=== PATIENT | female | born 1960 | race Caucasian/White ===

== ENCOUNTER → 2018-06-24 | Outpatient (CLI) | payer BC ==
--- NOTE | 2018-06-25 08:06 | MM ---
Reason for exam: clinical finding. Last mammogram was performed 1 year and 2 months ago. History: Patient is postmenopausal. Family history of breast cancer in mother at age 50 and breast cancer in sister at age 40. Benign excisional biopsy of the right breast, 2005. Indicated problem(s): lump or thickening in the right breast. Physical Findings: Nurse Summary: 1cm nodule in the left breast at 9 o'clock (nurse mj). MG Diagnostic Mammo w CAD RIGO Bilateral CC and MLO view(s) were taken. ML view(s) were taken of the left breast. Prior study comparison: April 10, 2017, bilateral MG diagnostic mammo w CAD RIGO. September 22, 2015, bilateral MG diagnostic mammo w CAD RIGO. The breast tissue is heterogeneously dense. This may lower the sensitivity of mammography. There is no discrete abnormality including area of concern marked by BB. No significant new findings when compared with previous films. These results were verbally communicated with the patient and result sheet given to the patient on 06/24/18. ASSESSMENT: Benign, BI-RAD 2 RECOMMENDATION: Routine screening mammogram of both breasts in 1 year.
--- NOTE | 2018-06-25 08:08 | USB ---
Reason for exam: clinical finding. History: Patient is postmenopausal. Family history of breast cancer in mother at age 50 and breast cancer in sister at age 40. Benign excisional biopsy of the right breast, 2005. US Breast LT Left complete breast ultrasound includes all four quadrants, the retroareolar region and axilla. Finding demonstrates no cystic or solid lesion seen at BB at 9:30. A 1.3 x 1.5 x 0.8cm oval node at the axilla. Normal lymph nodes at axilla, stable. These results were verbally communicated with the patient and result sheet given to the patient on 06/24/18. ASSESSMENT: Benign, BI-RAD 2 RECOMMENDATION: Routine screening mammogram of both breasts in 1 year. Manage patient on a clinical basis.
== END ==
LOC: RADMAMWWP 13:48
PROVIDERS: ATTEND Family Medicine
DX: N63.20 Unspecified lump in the left breast, unspecified quadrant (principal); Z85.3 Personal history of malignant neoplasm of breast
CPT/HCPCS: 77066

== ENCOUNTER → 2019-09-10 | Outpatient (CLI) | payer MEDICARE ==
--- NOTE | 2019-09-10 10:44 | MR ---
EXAMINATION TYPE: MR shoulder LT wo con DATE OF EXAM: 09/10/2019 10:26 AM COMPARISON: NONE HISTORY: Fall on Left Shoulder. Pain in Joint, Clicking and Loss of Range of Motion. TECHNIQUE: Multiplanar multispin echo imaging of the left shoulder was performed. FINDINGS: Rotator cuff : Partial complete tear supraspinatus tendon just distal to the critical zone with fluid filled gap of 9 mm. Additional heterogeneity and thickening of the supraspinatus tendon compatible c hronic tendinopathy. The remaining constituents of the rotator cuff are intact. Bursa: No bursal effusion or thickening is seen. Musculature: There is no muscular tear, contusion, or atrophy. Acromioclavicular joint : Moderate AC joint arthropathy. Subacromial spurring resulting in impingemen t. Osseous structures : There are no fractures or regions of abnormal bone marrow signal intensity. Long biceps tendon : The biceps tendon is normally situated within the bicipital groove. No complete or partial biceps tendon tear is present. Glenohumeral Joint fluid : Mild joint effusion noted. Cartilage and Bone : No focal hyaline cartilage defects are noted. No Hill-Sachs, reverse Hill-Sachs, or bony Bankart lesions are seen. Labrum : There are no SLAP or soft tissue Bankart lesions. No paralabral cysts are seen. OTHER FINDINGS : none IMPRESSION: 1. Partial complete tear supraspinatus tendon just distal to the critical zone with fluid filled gap of 9 mm. Additional heterogeneity and thickening of the supraspinatus tendon compatible chronic tendi nopathy.
== END | disposition home or self-care (01) ==
LOC: RADMRIMAIN 09:39
PROVIDERS: ATTEND Orthopaedic Surgery
DX: M75.122 Complete rotator cuff tear or rupture of left shoulder, not specified as traumatic (principal); M67.814 Other specified disorders of tendon, left shoulder

== ENCOUNTER → 2019-09-15 | Outpatient (CLI) | payer MEDICARE ==
[2019-09-15 11:21] LABS: Basophils % (A) 1 %; Eosinophils # (A) 0.1 k/uL (0-0.7); Eosinophils % (A) 1 %; HCT 42.3 % (34.0-46.0); HGB 13.6 gm/dL (11.4-16.0); Lymphocytes # (A) 1.8 k/uL (1.0-4.8); Lymphocytes % (A) 34 %; MCH 29.4 pg (25.0-35.0); MCHC 32.2 g/dL (31.0-37.0); MCV 91.4 fL (80.0-100.0); Monocytes # (A) 0.3 k/uL (0-1.0); Monocytes % (A) 6 %; Neutrophils # (A) 2.9 k/uL (1.3-7.7); Neutrophils % (A) 55 %; Platelet Count 285 k/uL (150-450); RBC 4.63 m/uL (3.80-5.40); WBC 5.2 k/uL (3.8-10.6)
[2019-09-15 16:19] LABS: Anion Gap 11.7 mmol/L (4.00-12.00); Carbon Dioxide 26.3 mmol/L (21.6-31.8); Potassium 4.4 mmol/L (3.5-5.5)
== END | disposition home or self-care (01) ==
LOC: LABWHC1 10:01
PROVIDERS: ATTEND Orthopaedic Surgery
DX: Z01.818 Encounter for other preprocedural examination (principal); M75.42 Impingement syndrome of left shoulder
CPT/HCPCS: 36415; 80051; 85025

== ENCOUNTER → 2019-10-03 | Outpatient (CLI) | payer MEDICARE | END | disposition home or self-care (01) | LOC: LABWHC1 14:19 | PROVIDERS: ATTEND Orthopaedic Surgery | DX: Z11.59 Encounter for screening for other viral diseases (principal) ==

== ENCOUNTER 2019-10-07 08:36 | Day surgery (SDC) | payer MEDICARE ==
[2019-10-06 09:28] VITALS: BMI 34.5
--- NOTE | 2019-10-06 10:40 | HP ---
HISTORY AND PHYSICAL CHIEF COMPLAINT: Left shoulder pain. HISTORY OF PRESENT ILLNESS: The patient is a 59-year-old, right-hand dominant, retired female who presents with left shoulder pain after an injury on 07/04/2019. She fell while holding a dog on a leash. She has had pain with overhead use and at night ever since. She has tried anti- inflammatories and rest without much relief. She denies previous problems. PAST MEDICAL HISTORY: Negative. PAST SURGICAL HISTORY: Negative. CURRENT MEDICATIONS: Ibuprofen and baby aspirin. She denies drug allergies. FAMILY HISTORY: Significant for cancer. SOCIAL HISTORY: Significant for previous tobacco use; however, she quit in 1980. 16 POINT REVIEW OF SYSTEMS: Otherwise reviewed and is noncontributory. PHYSICAL EXAMINATION: On examination, the patient is approximately 5 foot 3, 195 pounds of endomorphic habitus. HEENT: Exam is nonfocal. NECK: Supple. On examination of her left shoulder, she is tender about the anterior subacromial space and the bicipital groove. She has mild subacromial crepitus. Active range of motion, forward elevation 150 degrees, external rotation with arm at side 65 degrees, internal rotation to T12. Motor strength is 5-/5 for abduction and external rotation. Impingement test, Neer test is positive. Cross-body adduction is positive. Her distal neurovascular appears intact in the left upper extremity. MRI report left shoulder shows evidence of a full-thickness tear of the supraspinatus and acromioclavicular joint synovitis. IMPRESSION: 1. Acute left rotator cuff tear. 2. Left acromioclavicular joint synovitis. RECOMMENDATIONS: I talked to the patient at length regarding her condition and treatment options. At this point, she is quite symptomatic after this acute injury. After thorough discussion, she opts to proceed with surgery. We will plan to proceed with arthroscopic evaluation of the left shoulder with probable subacromial decompression, rotator cuff repair, and distal clavicular resection. We will likely perform that as an outpatient procedure. MMODL / IJN: [id number] /
[~2019-10-07 08:36] MED LIST: DEXAMETHASONE SOD PHOSPHATE 10 MG/ML 1 ML VIAL IV ONE; HYDROmorphone 0.5 MG/0.5 ML SYRINGE IVP PRN; LACTATED RINGERS 1,000 ML IV SCH; LIDOCAINE 1% (10MG/ML) FOR IV START INTRADERMA PRN; MIDAZOLAM 2 MG/2 ML VIAL IV PRN; ONDANSETRON 4 MG/2 ML VIAL IVP ONE
[2019-10-07] MEDS ORDERED: fentaNYL (PF) 50 MCG/ML 2 ML AMP IV ONE (09:15)
[2019-10-07] MEDS ORDERED: PHENYLEPHRINE-0.9% NACL SYG 1 MG/10 ML SYRINGE ONE (09:32)
[2019-10-07] MEDS ORDERED: fentaNYL (PF) 50 MCG/ML 2 ML AMP ONE (09:32)
[2019-10-07] MEDS ORDERED: DEXAMETHASONE SOD PHOSPHATE 4 MG/ML 1 ML VIAL ONE (09:32)
[2019-10-07] MEDS ORDERED: PROPOFOL 10 MG/ML 20 ML VIAL IV ONE (09:32)
[2019-10-07] MEDS ORDERED: LIDOCAINE 1% INJ 10MG/ML (20 ML MDV) ONE (09:32)
[2019-10-07] MEDS ORDERED: GLYCOPYRROLATE 0.2 MG/ML 2 ML VIAL ONE (09:32)
[2019-10-07] MEDS ORDERED: ROPIVACAINE 5 MG/ML 30 ML VIAL ONE (09:32)
[2019-10-07] MEDS ORDERED: SUCCINYLCHOLINE CHLORIDE 100 MG/5 ML SYR IV ONE (09:32)
--- NOTE | 2019-10-07 09:35 | P.ANPRN ---
Procedure Note - Anesthesia - Nerve Block Performed Left Interscalene Single Time Out Performed: Yes Date of Procedure: 10/07/19 Procedure Start Time: :15 Procedure Stop Time: :25 Location of Patient: PreOp Indication: Acute Post-Operative Pain, Dx/Pain Location (Left shoulder) Specifically requested for management of pain by DrIlene: Yo Montenegro Sedation Type: Sedate with meaningful contact maintained Preparation: Sterile Prep Position: Supine Catheter: None Needle Types: Facet Needle Gauge: 20 Ultrasound used to visualize needle placement: Yes Ultrasound used to observe medication spread: Yes Injectate: 0.5% Ropivacaine (see comment for volume) (20 mls) Blood Aspirated: No Pain Paresthesia on Injection Noted: No Resistance on Injection: Normal Image Stored and Saved: Yes Events: Uneventful and Well Tolerated
[2019-10-07] MEDS ORDERED: EPINEPHrine (PF) 1 ML in SODIUM CHLORIDE 0.9% IRRIGATIO 3,000 ML IRRIGATION ONE ×8 (10:00)
[2019-10-07] MEDS ORDERED: LACTATED RINGERS 1,000 ML IV ONE (10:56)
--- NOTE | 2019-10-07 11:10 | P.OP ---
Date of Procedure: 10/07/19 Preoperative Diagnosis: Left shoulder impingement/rotator cuff tear Postoperative Diagnosis: Left shoulder 4 cm rotator cuff tear/high-grade partial-thickness tear long head of the bicepsintra-articular portion/acromioclavicular joint arthritis Procedure(s) Performed: Left shoulder arthroscopic subacromial decompression/distal clavicular resection/biceps tenotomy/rotator cuff repair Implants: Arthrex 4.75 mm swivel lock anchor 3, 5.5 mm swivel lock anchor 1 Anesthesia: VIANEY, regional Surgeon: Yo Montenegro Kennel Worker #1: Mumtaz Cannon Estimated Blood Loss (ml): 10 Pathology: none sent Condition: stable Disposition: PACU Indications for Procedure: The patient is a 59-year-old female who presents with progressive left shoulder pain despite conservative measures. A discussion of the risks and benefits of operative intervention versus continued conservative measures was made with patient. She opted to proceed with surgery. Operative risks to include infection, neurovascular injury, development of blood clots, possible tendon rerupture, possible postoperative stiffness and need for subsequent procedures was discussed. Informed consent was obtained. Operative Findings: As below Description of Procedure: The patient was brought to the operating room, and after induction of general anesthesia was placed in a beachchair position. A preoperative interscalene block was placed for postoperative analgesia. I examined the left shoulder. There was no gross block to passive motion or gross glenohumeral instability. The left upper extremity was prepped and draped in normal fashion. The bony outlines the acromion, distal clavicle, and coracoid process were outlined with a skin marker. The glenohumeral joint was inflated with 50 mL of saline utilizing a spinal needle from posterior approach. A posterior portal was made through a 5 mm skin incision 1 cm medial and inferior to the posterior lateral border time. A blunt trocar was used to easily into the joint. Diagnostic arthroscopy was performed. An anterior portal was made just lateral to the coracoid process entering the joint above the subscapularis tendon. The subscapularis tendon appeared to be intact. Anterior labrum was intact. The inferior recess was inspected. The posterior labrum was intact. There was a high-grade partial-thickness tear of the long head of the biceps involving interarticular portion. It was elected to proceed with release at this point. This was released from the superior labrum with electrocautery and was allowed to retract to the bicipital groove. On inspection the rotator cuff, a large 4 cm tear was noted minimal retraction. The arthroscope was placed into the subacromial space. A lateral portal was made 2 centimeters inferior to the an terior lateral border of the acromion. The rotator cuff was easily brought back to the greater tuberosity. The soft tissue on the undersurface of the acromion was debrided with a motorized shaver and electrocautery clearly defining the anterior medial and lateral borders as well as the distal clavicle. An anterior inferior acromioplasty was performed with a motorized nanci starting anterolateral, then extending this posteriorly, then extending this medially. I converted to a flat acromion and this was verified in the posterior and lateral viewing portals. The distal 4 mm of the clavicle was resected with a motorized bur. The greater tuberosity was lightly decorticating with a shaver down to a bleeding bony surface. An accessory superior lateral portals made just off the lateral edge of the acromion for anchor placement. 2 anchors were then placed just off the articular surface with the appropriate starting awl. 4.75 mm anchors preloaded with #2 fiber tape were placed. Good purchase was obtained. These fiber tapes were then passed the rotator cuff with a scorpion suture passer. A lateral row was created crisscrossing these tapes. One 4.75 mm swivel lock anchor and one 5.5 mm swivel lock anchor was placed laterally. Good purchase was obtained. Final arthroscopic view showed adequate compression at the footprint. The arthroscope was then removed. The portals were closed with simple 3-0 nylon sutures. A sterile dressing was applied in addition to a sling. The patient was then awoken from general anesthesia and transferred to recovery room in good condition. Blood loss was estimated at 10 mL. No complications were incurred. Sponge and needle counts were correct in the case. Naif SABA assisted and the major components of the case to include arm positioning, anchor placement, and rotator cuff repair.
[2019-10-07 11:14] VITALS: TEMP 96.8
[2019-10-07 11:17] VITALS: RESP 16
[2019-10-07 14:46] VITALS: BP 115/74; PULSE 75
== END 2019-10-07 15:22 | disposition home or self-care (01) ==
LOC: OR 08:36
PROVIDERS: ATTEND Orthopaedic Surgery
DX: M75.102 Unspecified rotator cuff tear or rupture of left shoulder, not specified as traumatic (principal); M19.012 Primary osteoarthritis, left shoulder; Z79.1 Long term (current) use of non-steroidal anti-inflammatories (NSAID); Z79.82 Long term (current) use of aspirin; Z87.891 Personal history of nicotine dependence; Z80.9 Family history of malignant neoplasm, unspecified
CPT/HCPCS: 64415; 76942; 29826; 29827; 29824; C1713 ×2; C1894; J2250; J1100 ×2; J0690; J2405; J0171; J2001; J3010; J2795; J2370; J0330; J2704

== ENCOUNTER → 2020-01-23 | Outpatient (CLI) | payer MEDICARE ==
--- NOTE | 2020-01-26 10:32 | MM ---
Reason for exam: screening (asymptomatic). Last mammogram was performed 1 year and 7 months ago. History: Patient is postmenopausal. Family history of breast cancer in mother at age 50 and breast cancer in sister at age 40. Benign excisional biopsy of the right breast, 2005. Physical Findings: A clinical breast exam by your physician is recommended on an annual basis and results should be correlated with mammographic findings. MG 3D Screening Mammo W/Cad Bilateral CC and MLO view(s) were taken. Prior study comparison: June 24, 2018, bilateral MG diagnostic mammo w CAD RIGO. April 10, 2017, bilateral MG diagnostic mammo w CAD RIGO. The breast tissue is heterogeneously dense. This may lower the sensitivity of mammography. There is no discrete abnormality. ASSESSMENT: Negative, BI-RAD 1 RECOMMENDATION: Routine screening mammogram of both breasts in 1 year.
--- NOTE | 2020-01-26 14:19 | BD ---
EXAMINATION TYPE: Axial Bone Density DATE OF EXAM: 01/23/2020 COMPARISON: 04.10.2017 CLINICAL HISTORY: 59 YR OLD FEMALE....ICD-10 CODE: M89.9 DISORDER OF BONE Height: 61 Weight: 202 FRAX RISK QUESTIONS: Family History (Parent hip fracture): YES RISK FACTORS HISTORY OF: FX FINGER CHILD ONLY Family History of Osteoporosis: YES, MOTHER WITH HIP FX Postmenopausal woman: YES, AT AGE 48 YRS OLD Hyperparathyroidism: NO Adrenal Insufficiency: NO MEDICATIONS: Additional Medications: VIT D, Additional History: NOTHING TO NOTE HERE EXAM MEASUREMENTS: Bone mineral densitometry was performed using the Image Socket System. Bone mineral density as measured about the Lumbar spine is: ----- L1-L4(G/cm2): 1.174 T Score Values are as follows: ----- L1: -1.2 ----- L2: -0.9 ----- L3: 0.8 ----- L4: 0.5 ----- L1-L4: 0.0 Bone mineral density has: Increased 6.3% since study of: 04.10.2017 Bone mineral density about the R hip (g/cm2): 0.960 Bone mineral density about the L hip (g/cm2): 0.963 T Score values are as follows: -----R Neck: -1.6 -----L Neck: -1.1 -----R Total: -0.4 -----L Total: -0.1 Bone mineral density has: Decreased -2.4% since study of: 04.10.2017 FRAX%s: THERE IS 15.0% CHANCE FOR A MAJOR OSTEOPOROTIC FX AND A 0.7% FOR HIP.....PROBABILITY FOR FX IN 10 YRS TIME IMPRESSION: Osteopenia (T Score between -2.5 and -1). There is slightly increased risk of fracture and the patient may be considered for treatment. Re-Screen 2-5 years. NOTE: T-SCORE=SD OF THE YOUNG ADULT MEAN.
== END | disposition home or self-care (01) ==
LOC: RADMAMWWP 08:43
PROVIDERS: ATTEND Family Medicine
DX: Z12.31 Encounter for screening mammogram for malignant neoplasm of breast (principal); M85.80 Other specified disorders of bone density and structure, unspecified site; Z80.3 Family history of malignant neoplasm of breast
CPT/HCPCS: 77063; 77067; 77080

== ENCOUNTER → 2020-03-19 | Outpatient (CLI) | payer MEDICARE ==
--- NOTE | 2020-03-19 18:26 | MR ---
EXAMINATION TYPE: MR shoulder RT wo con DATE OF EXAM: 03/19/2020 COMPARISON: None HISTORY: pain in right shoulder goes down arm since October Technique: Multiplanar, multiecho imaging on a 3.0 Jen magnet is performed through the shoulder. Findings: Long head of the biceps tendon is within the bicipital groove. No significant joint effusion is evident. There is fluid surrounding the long head of the biceps ten don compatible with moderate tendinosis. Fluid also appears to surround the subscapularis tendon sugg estive for moderate tendinosis. Glenoid labrum as visualized on this noncontrast study appears to have increased signal within its meyer bstance. A SLAP lesion at the superior glenoid could be considered. Rotator cuff tendons are evaluated. There is fluid surrounding the supraspinatus tendon. No muscle o r tendon retraction is evident. There is a complete tear of the supraspinatus tendon distally with a few posterior fibers remaining. The acromioclavicular junction is mildly hypertrophied without significant downward spurring. IMPRESSIONS: 1. Nearly complete tear of the supraspinatus tendon with a transverse dimension of 2.8 cm. Muscle atr ophy or tendon retraction however is not identified. A few intact fibers may be at the supraspinatus subscapularis junction. 2. Moderate tendinosis supraspinatus tendon. 3. Moderate tendinosis long head biceps tendon.
== END | disposition home or self-care (01) ==
LOC: RADMRIMAIN 11:16
PROVIDERS: ATTEND Orthopaedic Surgery
DX: M75.121 Complete rotator cuff tear or rupture of right shoulder, not specified as traumatic (principal); M62.50 Muscle wasting and atrophy, not elsewhere classified, unspecified site

== ENCOUNTER → 2020-04-01 | Outpatient (CLI) | payer MEDICARE ==
--- NOTE | 2020-04-01 10:36 | CT ---
EXAMINATION TYPE: CT soft tissue neck w con DATE OF EXAM: 04/01/2020 HISTORY: Acute lymphadenitis of head and neck per order. COMPARISON: NONE CT DLP: 375.40 mGycm. Automated Exposure Control for Dose Reduction was Utilized. TECHNIQUE: CT scan of the neck is performed with IV Contrast, patient injected with 100 ml mL of Iso za 300, axial images are obtained, coronal and sagittal reformatted images are reviewed. FINDINGS: Airway: No gross abnormality seen. Parotid/submandibular glands: No gross abnormality seen. Carotid/Vascular Structures: No suspicious abnormality. Osseous Structures: Slight grade 1 anterolisthesis C3 on C4 and grade 1 retrolisthesis C5 on C6 and C 6 on C7 . Mild to moderate spurring and disc space narrowing C4-C5 through C6-C7 levels noted. Other: A few scattered subcentimeter lymph nodes throughout the neck bilaterally. No suspicious great er than 1 cm neck adenopathy. IMPRESSION: No suspicious mass or adenopathy.
== END | disposition home or self-care (01) ==
LOC: RADCTMAIN 09:24
PROVIDERS: ATTEND Family Medicine
DX: L04.0 Acute lymphadenitis of face, head and neck (principal)
CPT/HCPCS: 70491; Q9967

== ENCOUNTER → 2020-04-06 | Outpatient (CLI) | payer MEDICARE ==
[2020-04-06 10:43] LABS: Basophils % (A) 1 %; Eosinophils # (A) 0.1 k/uL (0-0.7); Eosinophils % (A) 1 %; HCT 43.5 % (34.0-46.0); HGB 13.8 gm/dL (11.4-16.0); Lymphocytes # (A) 2.2 k/uL (1.0-4.8); Lymphocytes % (A) 36 %; MCH 28.7 pg (25.0-35.0); MCHC 31.7 g/dL (31.0-37.0); MCV 90.4 fL (80.0-100.0); Mean Platelet Volume 6.7; Monocytes # (A) 0.4 k/uL (0-1.0); Monocytes % (A) 7 %; Neutrophils # (A) 3.4 k/uL (1.3-7.7); Neutrophils % (A) 53 %; Platelet Count 308 k/uL (150-450); RBC 4.81 m/uL (3.80-5.40); WBC 6.3 k/uL (3.8-10.6)
== END | disposition home or self-care (01) ==
LOC: LABPAT 10:12
PROVIDERS: ATTEND Orthopaedic Surgery
DX: Z01.818 Encounter for other preprocedural examination (principal); M75.41 Impingement syndrome of right shoulder
CPT/HCPCS: 36415; 85025

== ENCOUNTER 2020-04-13 11:53 | Day surgery (SDC) | payer MEDICARE ==
[2020-04-09 11:20] VITALS: BMI 35.4
--- NOTE | 2020-04-12 11:17 | HP ---
HISTORY AND PHYSICAL CHIEF COMPLAINT: Right shoulder pain. HISTORY OF PRESENT ILLNESS: Patient is a 60-year-old, right-hand dominant, retired female who presents with progressive right shoulder pain for the past several months. She had a previous fall. She is having pain with overhead use and at night. She has tried therapy in addition to Motrin, anti-inflammatories without much relief. She notes the pain bothers her daily and is quite severe. PAST MEDICAL HISTORY: Negative. PAST SURGICAL HISTORY: Significant for left shoulder arthroscopic rotator cuff repair. CURRENT MEDICATIONS: Aspirin and ibuprofen. She denies drug allergies. FAMILY HISTORY: Significant for cancer. SOCIAL HISTORY: Significant for previous tobacco use; however, she quit in 1980. She admits to social alcohol use. 16 POINT REVIEW OF SYSTEMS: Otherwise reviewed and is noncontributory. PHYSICAL EXAMINATION: On examination, the patient is approximately 5 foot 3, 200 pounds of endomorphic habitus. HEENT: Exam is nonfocal. NECK: Supple. On examination of the right shoulder, she is tender about the anterior subacromial space. She has moderate acromial crepitus. Active range of motion, forward elevation 150 degrees, external rotation with arm at side 65 degrees, internal rotation to T12. Motor strength is 5-/5 for abduction and external rotation. Impingement test is positive. NEER test is positive. Her distal neurovascular appears intact in the right upper extremity. MRI report right shoulder shows evidence of a supraspinatus tear with mild retraction along with significant bicipital tendinosis and AC joint arthritis/synovitis. IMPRESSION: 1. Acute right rotator cuff tear-symptomatic. 2. Right acromioclavicular joint are arthritis. 3. Proximal biceps tendinosis. RECOMMENDATION: I talked to the patient at length regarding her condition and treatment options. At this point, she is quite symptomatic after this acute injury despite attempted conservative measures. After thorough discussion, she opts to proceed with surgery. We will plan to proceed with arthroscopic evaluation with probable subacromial decompression, rotator cuff repair, possible biceps tenotomy, possible distal clavicular resection. We will likely perform that as an outpatient procedure. Risks and benefits were discussed at length in layman's terms. MMODL / IJN: [id number] /
[~2020-04-13 11:53] MED LIST changes: -DEXAMETHASONE SOD PHOSPHATE 10 MG/ML 1 ML VIAL IV ONE; +DEXAMETHASONE SOD PHOSPHATE 4 MG/ML 1 ML VIAL IV ONE; -HYDROmorphone 0.5 MG/0.5 ML SYRINGE IVP PRN
[2020-04-13] MEDS ORDERED: MIDAZOLAM 2 MG/2 ML VIAL IVP ONE (13:10)
[2020-04-13] MEDS ORDERED: fentaNYL (PF) 50 MCG/ML 2 ML AMP IVP ONE (13:10)
--- NOTE | 2020-04-13 13:54 | P.ANPRN ---
Procedure Note - Anesthesia - Nerve Block Performed Right Interscalene Time Out Performed: Yes (:) Date of Procedure: 04/13/20 Procedure Start Time: Procedure Stop Time: Location of Patient: PreOp Indication: Acute Post-Operative Pain, Requested by Surgeon (Dr Wetzel) Sedation Type: Sedate with meaningful contact maintained Preparation: Sterile Prep Position: Supine Catheter: None Needle Types: Pajunk Needle Gauge: Other (see comment) (22g) Ultrasound used to visualize needle placement: Yes Ultrasound used to observe medication spread: Yes Injectate: 0.5% Ropivacaine (see comment for volume) (20cc + [id number]) Blood Aspirated: No Pain Paresthesia on Injection Noted: No Resistance on Injection: Normal Image Stored and Saved: Yes Events: Uneventful and Well Tolerated
[2020-04-13 14:06] VITALS: RESP 16
[2020-04-13] MEDS ORDERED: PROPOFOL 10 MG/ML 20 ML VIAL IV ONE (14:10)
[2020-04-13] MEDS ORDERED: LIDOCAINE 1% INJ 10MG/ML (20 ML MDV) ONE (14:10)
[2020-04-13] MEDS ORDERED: MIDAZOLAM 2 MG/2 ML VIAL ONE (14:10)
[2020-04-13] MEDS ORDERED: SUCCINYLCHOLINE CHLORIDE 100 MG/5 ML SYR IV ONE (14:10)
[2020-04-13] MEDS ORDERED: fentaNYL (PF) 50 MCG/ML 2 ML AMP ONE (14:10)
[2020-04-13] MEDS ORDERED: DEXAMETHASONE SOD PHOSPHATE 4 MG/ML 1 ML VIAL ONE (14:10)
[2020-04-13] MEDS ORDERED: ROPIVACAINE 5 MG/ML 30 ML VIAL ONE (14:10)
[2020-04-13] MEDS ORDERED: EPINEPHrine (PF) 1 ML in SODIUM CHLORIDE 0.9% IRRIGATIO 3,000 ML IRRIGATION ONE ×7 (15:42→15:43)
[2020-04-13] MEDS ORDERED: LACTATED RINGERS 1,000 ML IV ONE (15:43)
--- NOTE | 2020-04-13 15:46 | P.OP ---
Date of Procedure: 04/13/20 Preoperative Diagnosis: Right symptomatic rotator cuff tear Postoperative Diagnosis: 3 cm rotator cuff tear/acromioclavicular joint arthritis/high-grade partial- thickness tear proximal biceps Procedure(s) Performed: Right shoulder arthroscopic subacromial decompression/biceps tenotomy/distal clavicular resection/rotator cuff repair Implants: Arthrex 4.75 mm swivel lock anchor 4 [facility]: Yo Monten[place] [employer] Sergeant #1: Mumtaz Cannon Estimated Blood Loss (ml): 10 Pathology: none sent Condition: stable Disposition: PACU Indications for Procedure: The patient is a 60-year-old female who presents with progressive right shoulder pain despite conservative measures. A discussion of the risks and benefits of operative intervention versus continued conservative measures was made with patient. She opted proceed with surgery. Operative risks to include infection, neurovascular injury, development of blood clots, possible tendon rerupture, possible stiffness, possible need for subsequent procedures was discussed. Informed consent was obtained. Operative Findings: As below Description of Procedure: The patient was brought to the operating room, and after induction of general anesthesia was placed in a beachchair position. A preoperative interscalene block was placed for postoperative analgesia. I examined the right shoulder. There was no gross block to passive motion or gross glenohumeral instability. The right upper extremity was prepped and draped in normal fashion. The bony outlines the acromion, distal clavicle, and coracoid process were outlined with a skin marker. The glenohumeral joint was inflated with 50 mL of saline utilizing a spinal needle from posterior approach. A posterior portal was made through a 5 mm skin incision 1 cm medial and inferior to the posterior lateral border time. A blunt trocar was used to easily into the joint. Diagnostic arthroscopy was performed. An anterior portal was made just lateral to the coracoid process entering the joint above the subscapularis tendon. The subscapularis tendon appeared to be intact. Anterior labrum was intact. The inferior recess was inspected. The posterior labrum was intact. There was a high-grade partial-thickness tear of the long head of the biceps involving interarticular portion. It was elected to proceed with release at this point. This was released from the superior labrum with electrocautery and was allowed to retract to the bicipital groove. On inspection the rotator cuff, a full- thickness tear involving the supraspinatus and infraspinatus was noted measuring 3 cm with some retraction. A lateral portal was made 2 centimeters inferior to the anterior lateral border of the acromion. The rotator cuff was easily mobilized with a soft tissue grasper back to the greater tuberosity. The soft tissue on the undersurface of the acromion was debrided with a motorized shaver and electrocautery clearly defining the anterior medial and lateral borders as well as the distal clavicle. An anterior inferior acromioplasty was performed with a motorized nanci starting anterolateral, then extending this posteriorly, then extending this medially. I converted to a flat acromion and this was verified in the posterior and lateral viewing portals. The distal clavicle was impinging on the subacromial space in addition degenerative changes of the acromioclavicular joint were noted. The distal 4 mm of clavicle was resected with a motorized bur. The greater tuberosity was lightly decorticating with a shaver down to a bleeding bony surface. An accessory superior lateral portals made just off the lateral edge of the acromion for anchor placement. 2 anchors were then placed just off the articular surface with the appropriate starting awl. 4.75 mm anchors preloaded with #2 fiber tape were placed. Good purchase was obtained. These fiber tapes were then passed the rotator cuff with a scorpion suture passer. A lateral row was created crisscrossing these tapes. 4.75 mm swivel lock anchors x2 were placed laterally. Good purchase was obtained. Final arthroscopic view showed adequate compression at the footprint. The arthroscope was then removed. The portals were closed with simple 3-0 nylon sutures. A sterile dressing was applied in addition to an abductor brace. The patient was then awoken from general anesthesia and transferred to recovery room in good condition. Blood loss was estimated at 10 mL. No complications were incurred. Sponge and needle counts were correct in the case. Naif SABA assisted and the major components of the case to include arm positioning, anchor placement, and rotator cuff repair.
[2020-04-13 15:53] VITALS: TEMP 98.6
[2020-04-13] MEDS: HYDROmorphone 0.5 MG/0.5 ML SYRINGE IVP PRN ×2 (16:18→16:29)
[2020-04-13] MEDS ORDERED: KETOROLAC 15 MG/ML 1 ML VIAL IVP ONE (16:21)
[2020-04-13] MEDS ORDERED: traMADol 50 MG TAB ONE (17:15)
[2020-04-13] MEDS ORDERED: traMADol 50 MG TAB PO ONE (17:18)
[2020-04-13 17:36] VITALS: BP 121/77; PULSE 68
== END 2020-04-13 19:00 | disposition home or self-care (01) ==
LOC: OR 11:53
PROVIDERS: ATTEND Orthopaedic Surgery
DX: S46.011A Strain of muscle(s) and tendon(s) of the rotator cuff of right shoulder, initial encounter (principal); W19.XXXA Unspecified fall, initial encounter; M19.011 Primary osteoarthritis, right shoulder; S46.111A Strain of muscle, fascia and tendon of long head of biceps, right arm, initial encounter; Z87.891 Personal history of nicotine dependence; Z80.9 Family history of malignant neoplasm, unspecified; Z98.890 Other specified postprocedural states; Z79.1 Long term (current) use of non-steroidal anti-inflammatories (NSAID); Z79.82 Long term (current) use of aspirin
CPT/HCPCS: 64415; 76942; 29826; 29827; 29824; C1713; J2250; J1100; J0690; J2405; J0171; J2001; J3010; J2795; J1885; J0330; J2704; J1170

== ENCOUNTER → 2021-02-02 | Outpatient (CLI) | payer MEDICARE ==
--- NOTE | 2021-02-03 09:46 | MM ---
Reason for exam: screening (asymptomatic). Last mammogram was performed 1 year ago. History: Patient is postmenopausal. Family history of breast cancer in mother at age 50 and breast cancer in sister at age 40. Benign excisional biopsy of the right breast, 2005. Physical Findings: A clinical breast exam by your physician is recommended on an annual basis and results should be correlated with mammographic findings. MG 3D Screening Mammo W/Cad Bilateral CC and MLO view(s) were taken. Prior study comparison: January 23, 2020, bilateral MG 3d screening mammo w/cad. June 24, 2018, bilateral MG diagnostic mammo w CAD RIGO. The breast tissue is heterogeneously dense. This may lower the sensitivity of mammography. There are benign appearing round linear calcifications bilaterally. There is no discrete abnormality. ASSESSMENT: Benign, BI-RAD 2 RECOMMENDATION: Routine screening mammogram of both breasts in 1 year.
== END | disposition home or self-care (01) ==
LOC: RADMAMWWP 09:34
PROVIDERS: ATTEND Family Medicine
DX: Z12.31 Encounter for screening mammogram for malignant neoplasm of breast (principal)
CPT/HCPCS: 77063; 77067

== ENCOUNTER → 2022-03-01 | Outpatient (CLI) | payer MEDICARE ==
--- NOTE | 2022-03-02 16:44 | MM ---
Reason for Exam: Screening (asymptomatic). Last mammogram was performed 1 year(s) and 1 month(s) ago. Patient History: Menarche at age 10. First Full-Term at age 20. Postmenopausal. Patient has history of breast feeding. 2006, Benign Excisional Biopsy on the right side. Sister had breast cancer, age 40. Mother had breast cancer, age 50. Risk Values: Cherri 5 year model risk: 8.2%. NCI Lifetime model risk: 30.5%. Prior Study Comparison: 06/24/2018 Bilateral Diagnostic Mammogram, [facility]. 01/23/2020 Bilateral Screening Mammogram, [facility]. 02/02/2021 Bilateral Screening Mammogram, [facility]. Tissue Density: The breast tissue is heterogeneously dense. This may lower the sensitivity of mammography. Findings: Analyzed By CAD. Pattern appears symmetrical and stable. No significant interval change is evident. No suspicious groups of microcalcifications, spiculated or lobular masses, architectural distortion or other secondary signs of malignancy are mammographically apparent. Overall Assessment: Benign, BI-RAD 2 Management: Screening Mammogram of both breasts in 1 year. A negative mammogram report should not preclude additional follow up of suspicious palpable abnormalities. Patient should continue monthly self breast exam. A clinical breast exam by your physician is recommended on an annual basis and results should be correlated with mammographic findings. Electronically signed and approved by: Ángel Rodriguez D.O. Radiologis
--- NOTE | 2022-03-02 17:32 | BD ---
EXAMINATION TYPE: Axial Bone Density DATE OF EXAM: 03/01/2022 COMPARISON: 01/23/2020 CLINICAL HISTORY: 62 years year old Female. ICD-10 CODE: N95.1 Post menopausal symptoms; M89.9 disor gadiel of bone Height: 61 IN Weight: 203 LBS FRAX RISK QUESTIONS: Family History (Parent hip fracture): YES MOTHER RISK FACTORS HISTORY OF: Family History of Osteoporosis: YES MOTHER Active: YES Postmenopausal woman: AGE 48 MEDICATIONS: Additional Medications: VIT D, EXAM MEASUREMENTS: Bone mineral densitometry was performed using the [facility]. Bone mineral density as measured about the Lumbar spine is: ----- L1-L4(G/cm2): 1.146 T Score Values are as follows: ----- L1: -0.4 ----- L2: -1.4 ----- L3: 0.1 ----- L4: 0.2 ----- L1-L4: -0.3 Bone mineral density has: Decreased -4.7% since study of: 01/23/2020 Bone mineral density about the R hip (g/cm2): 0.793 Bone mineral density about the L hip (g/cm2): 0.853 T Score values are as follows: -----R Neck: -1.8 -----L Neck: -1.3 -----R Total: -0.6 -----L Total: -0.4 Bone mineral density has: Decreased -3.7% since study of: 01/23/2020 FRAX%s: The graph provided illustrates a 16.5 chance for a major osteoporotic fx and a 1.0 chance for the hips probability for fx in 10 years time. IMPRESSION: Osteopenia (T Score between -2.5 and -1). There is slightly increased risk of fracture and the patient may be considered for treatment. Re-Screen 2-5 years. NOTE: T-SCORE=SD OF THE YOUNG ADULT MEAN.
== END | disposition home or self-care (01) ==
LOC: RADBDWWP 16:14
PROVIDERS: ATTEND Family Medicine
DX: Z12.31 Encounter for screening mammogram for malignant neoplasm of breast (principal); M85.89 Other specified disorders of bone density and structure, multiple sites; Z80.3 Family history of malignant neoplasm of breast; Z78.0 Asymptomatic menopausal state
CPT/HCPCS: 77063; 77067; 77080

== ENCOUNTER → 2023-03-19 | Outpatient (CLI) | payer MEDICARE ==
--- NOTE | 2023-03-19 09:25 | MM ---
Reason for Exam: Screening (asymptomatic). Last screening mammogram was performed 12 month(s) ago. Patient History: Menarche at age 10. First Full-Term at age 20. Postmenopausal. Patient has history of breast feeding. 2005, Benign Excisional Biopsy on the right side. Sister had breast cancer, age 40. Mother had breast cancer, age 50. Risk Values: Cherri 5 year model risk: 8.4%. NCI Lifetime model risk: 29.7%. Prior Study Comparison: 01/23/2020 Bilateral Screening Mammogram, [facility]. 02/02/2021 Bilateral Screening Mammogram, [facility]. 03/01/2022 Bilateral MG 3D screening mammo w/cad, [facility]. Tissue Density: There are scattered fibroglandular densities. Findings: Analyzed By CAD. There is no suspicious group of microcalcifications or new suspicious mass. Overall Assessment: Negative, BI-RAD 1 Management: Screening Mammogram of both breasts in [address] [facility] will attempt to contact patient to return for supplemental views and ultrasound if indicated. Patient should continue monthly self-breast exams. A clinical breast exam by your physician is recommended on an annual basis. This exam should not preclude additional follow-up of suspicious palpable abnormalities. Note on Cherri scores and lifetime risk: 1. A Cherri score greater than 3% is considered moderate risk. If this is the case, consider specialist referral to assess eligibility for a risk reducing agent. 2. If overall lifetime risk for the development of breast cancer is 20% or higher, the patient may qualify for future screening with alternating mammogram and breast MRI. Electronically signed and approved by: Ty Taylor DO
== END | disposition home or self-care (01) ==
LOC: RADMAMWWP 08:02
PROVIDERS: ATTEND Family Medicine
DX: Z12.31 Encounter for screening mammogram for malignant neoplasm of breast (principal); Z78.0 Asymptomatic menopausal state; Z80.3 Family history of malignant neoplasm of breast
CPT/HCPCS: 77063; 77067

== ENCOUNTER → 2024-03-25 | Outpatient (CLI) | payer MEDICARE ==
--- NOTE | 2024-03-25 17:36 | BD ---
EXAMINATION TYPE: Axial Bone Density DATE OF EXAM: 03/25/2024 CLINICAL HISTORY: 64 years old Female. ICD-10 CODE: M81.0 OSTEOPOROSIS , Additional History: Height: 62.5 Weight: 170.1 FRAX RISK QUESTIONS: Alcohol (3 or more units per day): no Family History (Parent hip fracture): yes Glucocorticoids (More than 3mos): no (Ex: prednisone, prednisolone, methylprednisolone, dexamethasone, and hydrocortisone). History of Fracture in Adulthood: no Secondary Osteoporosis: 1. Type 1 Diabetes: no 2. Hyperthyroidism: no 3. Menopause before 45: no 4. Malnutrition: no 5. Chronic liver disease: no Rheumatoid Arthritis: no Current Tobacco Use: no RISK FACTORS HISTORY OF: Surgery to Spine/Hip(right/left)/Wrist (right/left): no EXAM MEASUREMENTS: Bone mineral densitometry was performed using the [employer] [facility]. Bone mineral density as measured about the Lumbar spine is: ----- L1-L4(G/cm2): 1.122 T Score Values are as follows: ----- L1: -0.5 ----- L2: -1.4 ----- L3: -0.5 ----- L4: 0.2 ----- L1-L4: -0.5 Z Score Values are as follows: ----- L1: 0.7 ----- L2: -0.2 ----- L3: 0.7 ----- L4: 1.3 ----- L1-L4: 0.7 Bone mineral density has: decreased -2.1 % since study of: 03.01.2022 Bone mineral density about the R hip (g/cm2): 0.883 Bone mineral density about the L hip (g/cm2): 0.930 T Score values are as follows: -----R Neck: -1.8 -----L Neck: -1.4 -----R Total: -1.0 -----L Total: -0.6 Z Score values are as follows: -----R Neck: -0.6 -----L Neck: -0.2 -----R Total: -0.1 -----L Total: 0.3 Bone mineral density has: decreased -3.6 % since study of: 11.2.2021 FRAX%s: The graph provided illustrates a 18.2% chance for a major osteoporotic fx and a 1.3% chance f or the hips probability for fx in 10 years time. IMPRESSION: Osteopenia (T Score between -2.5 and -1). There is slightly increased risk of fracture and the patient may be considered for treatment. Re-Screen 2-5 years. NOTE: T-SCORE=SD OF THE YOUNG ADULT MEAN. [facility], , 03/25/2024 5:34 PM
--- NOTE | 2024-03-26 08:49 | MM ---
Reason for Exam: Screening (asymptomatic). Last screening mammogram was performed 12 month(s) ago. Patient History: Menarche at age 10. First Full-Term at age 20. Postmenopausal. Patient has history of breast feeding. 2006, Benign Excisional Biopsy on the right side. Sister had breast cancer, age 40. Mother had breast cancer, age 50. Risk Values: Cherri 5 year model risk: 8.6%. NCI Lifetime model risk: 28.9%. Prior Study Comparison: 02/02/2021 Bilateral Screening Mammogram, [facility]. 03/01/2022 Bilateral MG 3D screening mammo w/cad, [facility]. 03/19/2023 Bilateral MG 3D screening mammo w/cad, [facility]. Tissue Density: The breasts are heterogeneously dense, which may obscure small masses. Findings: Analyzed By CAD. There is no suspicious group of microcalcifications or new suspicious mass in either breast. Stable benign-appearing lymph nodes in the axilla. Benign calcifications. Overall Assessment: Benign, BI-RAD 2 Management: Screening Mammogram of both breasts in 1 year. . Patient should continue monthly self-breast exams. A clinical breast exam by your physician is recommended on an annual basis. This exam should not preclude additional follow-up of suspicious palpable abnormalities. Note on Cherri scores and lifetime risk: 1. A Cherri score greater than 3% is considered moderate risk. If this is the case, consider specialist referral to assess eligibility for a risk reducing agent. 2. If overall lifetime risk for the development of breast cancer is 20% or higher, the patient may qualify for future screening with alternating mammogram and breast MRI. [facility], , 03/26/2024 8:46 AM. Electronically signed and approved by: Hasmukh Rodriguez M.D. Radiologis
== END | disposition home or self-care (01) ==
LOC: RADMAMWWP 12:56
PROVIDERS: ATTEND Family Medicine
DX: Z12.31 Encounter for screening mammogram for malignant neoplasm of breast (principal); M81.0 Age-related osteoporosis without current pathological fracture; Z78.0 Asymptomatic menopausal state; Z80.3 Family history of malignant neoplasm of breast; R92.333 Mammographic heterogeneous density, bilateral breasts; M85.80 Other specified disorders of bone density and structure, unspecified site
CPT/HCPCS: 77063; 77067; 77080